=== PATIENT | female | born 1950 | race Caucasian/White ===

== ENCOUNTER 2017-04-24 07:47 | Day surgery (SDC) | payer OTHER ==
[~2017-04-24] VITALS: Ht 172.7 cm; Wt 61.0 kg
[~2017-04-24 07:47] MED LIST: ALTACE5 MG PO; CENTRUM SILVER1 EAC3 PO; COLACE100 MG PO; COSOPT PF EYE1 EACH BOTH EYES; CREON DR 12,001 EAC1 PO; KENALOG,ARISTOC15 GM TP; LATANOPROST2.5 ML BOTH EYES; LO-DOSE ASPIRIN81 M2 PO; MARINOL2.5 M1 PO; MOTRIN800 MG PO; NEURONTIN300 MG PO; OMEPRAZOLE40 M1 PO; PROCHLORPERAZIN10 MG PO; VITAMIN C WIT1000 MG PO; XELODA500 MG PO; ZOFRAN8 MG PO
== END 2017-04-24 09:47 | disposition home or self-care (01) ==
LOC: CATH 07:47
PROC: 0JH60XZ Insertion of Tunneled Vascular Access Device into Chest Subcutaneous Tissue and Fascia, Open Approach (ICD-10-PCS; principal; 2017-04-24)
DX: C25.9 Malignant neoplasm of pancreas, unspecified (principal); I87.8 Other specified disorders of veins; I10 Essential (primary) hypertension; E78.00 Pure hypercholesterolemia, unspecified; Z79.82 Long term (current) use of aspirin; Z79.899 Other long term (current) drug therapy
CPT/HCPCS: C1752; C1894; J0690; J1644; J2250; J3010; S0020

== ENCOUNTER → 2017-09-23 | Outpatient (CLI) | payer OTHER ==
[~2017-09-23] MED LIST changes: +LO-DOSE ASPIRIN81 M1 PO
== END | disposition home or self-care (01) ==
LOC: AMB 13:40
DX: Z45.2 Encounter for adjustment and management of vascular access device (principal); I87.8 Other specified disorders of veins